=== PATIENT | female | born 1990 | race Asian ===

== ENCOUNTER 2023-12-29 16:03 | Emergency (ER) | payer OTHER, SELFPAY ==
[2023-12-29 16:09] VITALS: BP 120/78; PULSE 82; RESP 18; TEMP 36.4; O2SAT 99; BMI 22.3
--- NOTE | 2023-12-29 16:33 | ED_ITS ---
HPI - General Adult General Date Seen: 12/29/23 Chief complaint: Vaginal Bleeding Stated complaint: Vaginal bleeding Time Seen by Provider: 12/29/23 16:12 Source: patient and family Mode of arrival: ambulatory Limitations: no limitations History of Present Illness HPI narrative: Patient is a 33-year-old woman who presents with bleeding after positive test at home. She tells me that her last period was on October. She had a positive test on December 21, they are attempting to have 2nd child. She is G 2p 0. She started having some light bleeding and now she s ays she is bleeding more like a regular period. No abdominal pain, occasionally has little bit of cramping. She says she repeated the test today at home and it was negative. She believes that her blood type is O but she does not know whether she is O-positive or O negative. Denies complications with her prior . No other medical history, no medications. Related Data Home Medications Medication Instructions Recorded Confirmed No Known Home Medications 12/29/23 12/29/23 Allergies Allergy/AdvReac Type Severity Reaction Status Date / Time No Known Drug Allergies Allergy Verified 12/29/23 16:11 Review of Systems Status of ROS: Reports: 6 or more systems reviewed and unremarkable except as noted in History and below Exam Narrative: Exam Narrative: Vital signs reviewed. Normal. In general, alert, well-appearing woman. Looks comfortable. Abdomen: Soft nontender. Skin: Warm dry well perfused. Const: Vital Signs, click to edit/add: Vital Signs - 24 hr 12/29/23 16:09 Temperature 97.5 F L Pulse Rate [Right Pulse Oximeter] 82 Respiratory Rate 18 Blood Pressure [Ri ght Upper Arm] 120/78 Pulse Oximetry 99 Oxygen Delivery Me thod Room Air Documenting provider has reviewed patient's vital signs: yes Course Course ED Course: I think it is reasonable to confirm absence of beta HCG with a quant, also determine Rh status. If her beta HCG is indeed below threshold of a positive test, discussed I think this is likely blighted ovum, I do not think an ultrasound will be particularly valuable as a do not believe this to be ectopic in that setting. Beta hCG is 10.76. Blood type is O-positive. Reviewed briefly with Dr. Weaver, I think in this setting this is almost certainly an early miscarriage. In the absence of significant abdominal pain, abnormal vital signs, or other red flags, I think it is reasonable to let her go home. Will have her follow-up on Sunday for repeat beta-hCG. Reviewed reasons to return, severe pain, heavy bleeding, fever, etcetera. She is comfortable this plan. Vital Signs Vital signs: Initial Vital Signs Temperature 97.5 F L 12/29/23 16:09 Temperature Source Temporal Artery Scan 12/29/23 16:09 Pulse Rate 82 12/29/23 16:09 Respiratory Rate 18 12/29/23 16:09 Blood Pressure 120/78 12/29/23 16:09 Blood Pressure Mean 92 12/29/23 16:09 Blood Pressure Position Sitting 12/29/23 16:09 Pulse Oximetry 99 12/29/23 16:09 Oxygen Delivery Method Room Air 12/29/23 16:09 Vital Signs Temperature 97.5 F L 12/29/23 16:09 Pulse Rate 82 12/29/23 16:09 Respiratory Rate 18 12/29/23 16:09 Blood Pressure 120/78 12/29/23 16:09 Pulse Oximetry 99 12/29/23 16:09 Oxygen Delivery Method Room Air 12/29/23 16:09 Temperature 97.5 F L 12/29/23 16:09 Pulse Rate 82 12/29/23 16:09 Respiratory Rate 18 12/29/23 16:09 Blood Pressure 120/78 12/29/23 16:09 Pulse Oximetry 99 12/29/23 16:09 Oxygen Delivery Method Room Air 12/29/23 16:09 Medical Decision Making Lab Data Labs: Lab Results 12/29/23 Range/Units 16:34 HCG, Quant 10.76 mIU/mL Blood Type O Positive Antibody Screen NEGATIVE Discharge Plan Discharge Clinical Impression: Threatened Patient Disposition: Home, Self-Care Condition: Stable Instructions: Miscarriage (ED) Additional Instructions: The level of your hormone today is 11, which is very low and likely means that you are having a miscarriage. This is below the threshold for home tests, but technically still above the threshold for with a blood test. You should be seen on Sunday for repeat test to confirm that this continues to fall to 0. You can schedule this with our [facility] at [phone]. If at any point you have severe pain, lightheadedness, fainting, fever, or other worsening, you should return to the emergency department. You will likely have some bleeding and cramping over the next couple of days, symptoms should decrease after that. If you have persistent bleeding, you should be seen again. Your blood type is O-positive. Prescriptions: No Action No Known Home Medications Follow Up/Referrals: Provider,Not a Local [Primary Care Provider] - Stand Alone Forms: [employer] Info Instructions
[2023-12-29 17:15] LABS: HCG Quantitative* 10.76 mIU/mL
== END 2023-12-29 17:45 | disposition home or self-care (01) ==
PROVIDERS: Emergency Provider Emergency Medicine
DX: O20.0 Threatened abortion (principal)
CPT/HCPCS: 36415; 84702; 86850; 86900; 86901; 99283; 99284